=== PATIENT | female | born 1995 | race Caucasian/White ===

== ENCOUNTER 2018-07-14 19:56 | Inpatient (IN) | payer OTHER ==
[~2018-07-14] VITALS: Ht 165.1 cm; Wt 73.9 kg
--- NOTE | 2018-07-14 20:45 | NUR ---
Pre-admission assessment Patient is a 22-year old, female, seen at intake, AAOx4, no SOB but noted to be flushed and with gross tremors. Patient verbalized having anxiety. Discussed with patient admission policies of the unit. Patient is coherent and able to respond to questions appropriately. Patient is from [place], [place]. Pt is ambulatory with steady gait. Pt reports drinking Alcohol and uses Adderall as prescribed. Vital signs taken and as follows: CZ=093/99, P=113, O2 sat on RA=98%, RR=20, T=98.4. Per patient, she was diagnosed by her PCP of pre-Hypertension within the past 3 months. Pt verbalized instructions and teachings regarding disposal of narcotic and other controlled home meds, unit protocols such as taking of vital signs Q4H and handling and disposal of contraband.
[2018-07-14] MEDS ORDERED: MAG HYDROX/AL HYDROX/SIMETH 30 ML LIQUID UDC PO PRN (21:30)
[2018-07-14] MEDS ORDERED: ACETAMINOPHEN 325 MG TABLET PO PRN (21:30)
[2018-07-14] MEDS ORDERED: LOPERAMIDE HCL 2 MG CAPSULE PO PRN ×2 (21:30)
[2018-07-14] MEDS ORDERED: ONDANSETRON 4 MG/2 ML VIAL IM PRN (21:30)
[2018-07-14] MEDS ORDERED: SRC ALCOHOL WITHDRAWAL ADMITTING PROTOCOL XX PRN (21:30)
[2018-07-14] MEDS ORDERED: MIRALAX 17 GM POWD.PACK PO PRN (21:30)
[2018-07-14] MEDS ORDERED: MAGNESIUM HYDROXIDE 30 ML LIQUID UDC PO PRN (21:30)
[2018-07-14] MEDS ORDERED: ONDANSETRON ODT 4 MG TAB.RAPDIS SL PRN (21:30)
[2018-07-14] MEDS ORDERED: LORAZEPAM 2 MG/1 ML VIAL IM PRN (21:30)
[2018-07-14] MEDS ORDERED: LORAZEPAM 1 MG TABLET PO PRN (21:30)
[2018-07-14] MEDS: THIAMINE HCL 200 MG/2 ML VIAL IM ONE ×2 (22:00→23:14)
[2018-07-14] MEDS ORDERED: LORAZEPAM 1 MG TABLET PO ONE (22:00)
[2018-07-14 22:10] LABS: BASOPHILS # (AUTO) 0.1 K/uL (0.0-8.0); BASOPHILS % (AUTO) 0.6 % (0.0-2.0); EOSINOPHILS # (AUTO) 0.1 K/uL (0.0-0.7); EOSINOPHILS % (AUTO) 0.7 % (0.0-7.0); HEMATOCRIT 42.6 % (31.2-41.9); HEMOGLOBIN 14.7 g/dL (10.9-14.3); LYMPHOCYTES # (AUTO) 1.6 K/uL (20.0-40.0); LYMPHOCYTES % (AUTO) 15.9 % (20.5-51.5); MEAN CORPUSCULAR HGB CONC 35 g/dL (32.3-35.6); MEAN CORPUSCULAR VOLUME 95.4 fL (75.5-95.3); MONOCYTES # (AUTO) 0.7 K/uL (2.0-10.0); MONOCYTES % (AUTO) 6.7 % (0.0-11.0); NEUTROPHILS # (AUTO) 7.7 K/uL (1.8-8.9); NEUTROPHILS % (AUTO) 76.1 % (38.5-71.5); PLATELET COUNT (AUTO) 263 K/uL (179-408); RED BLOOD CELL COUNT(AUTO) 4.47 MIL/uL (3.63-4.92); WHITE BLOOD COUNT (AUTO) 10.2 K/uL (3.8-11.8)
--- NOTE | 2018-07-14 22:30 | NUR ---
Admission note VS BP-155/105 T-98.5 P-100 R-18 . Patient arrived in the unit at 2111. Patient is a 22 year old female who presents to [facility] for medically supervised withdrawal from ETOH. Patient is seeking for treatment because "If I don't stop I will ". Patient is 5'5 and 166 lbs. Skin intact. Speech is clear and gait is steady. Patient present with flat affect and depressed mood. Patient is not intoxicated and moderately withdrawing. She is anxious, restless, has bilateral hand tremors and flushing. CIWA is 17 upon assessment . Patient's typical symptoms are nausea, fatigue, tremors and headache. Past medical history : Patient's PCP is Dr. Neli Morales. Patient reports PMH of pre-hypertension, anxiety and depression, ulcerative colitis, insomnia, ADHD and alcoholic hepatitis. Patient states she doesn't take any medication for anxiety and depression. She brought Gabapentin from home. Patient reported taking Protonix 20 mg daily for ulcerative colitis. She denies seizure history. NO SI/HI. She experienced blackouts . I happened to me twice, she states. Patient had 5150 hospitalization on November 2017. Substance History: 1.Alcohol (Beer)-Patient started drinking 3 years ago. She drinks 12-15 12oz of beer daily for 2 years. Last drink was yesterday at 10 PM . She had 12 12oz of beer. 2.Adderall-Patient started using 5 years ago. This was prescribed for her ADHD. She takes 20 mg daily for 5 years. Last use was today. She used 5 mg. Patient reported using Ambien for her Insomnia. Last use was Nov, 2017. Per patient she had accidental overdose on Ambien and was admitted on [facility]. Patient denies it as suicide attempt that it was accidental overdose. Treatment history: Patient was in [facility] ([place]) on November 2017 -She stayed there for 5 days. She was given Librium during her stay . Patient stated that she doesn't really know why she's started drinking but since her mother and ex-boyfriend are alcoholic that she believes being around them influence her . This is also the reason for her relapse. She also believes that having depression is also one of the reason why she's drinking. When she get depressed she drinks. The consequences of her drinking was her health. She was diagnosed with alcoholic hepatitis on November 2017 . She was told by her doctor to stop drinking. She stated that she will go to [facility] after this and will start attending AA meetings. Patient oriented to surroundings and how to use call light. Explained unit and smoking policies. Safety measures in place. Will continue to monitor.
[2018-07-14 22:40] LABS: ALKALINE PHOSPHATASE 84 U/L (50-136); AMYLASE 37 U/L (25-115); ASPARTATE AMINOTRANSFERASE 119 U/L (15-37); BILIRUBIN,TOTAL 0.5 mg/dL (0.2-1.0); CARBON DIOXIDE 23 mmol/L (21-32); CHLORIDE 101 mmol/L (98-107); CREATININE 0.8 mg/dL (0.6-1.3); ETHANOL < 3 MG/DL (0-0); GLUCOSE 116 mg/dL (74-106); LIPASE 207 U/L (73-393); POTASSIUM 3.7 mmol/L (3.5-5.1); THYROID STIMULATING HORMONE 1.398 mIU/mL (0.358-3.740); TOTAL PROTEIN, SERUM 8.4 g/dL (6.4-8.2); UREA NITROGEN, BLOOD 7 mg/dL (7-18)
[2018-07-14 22:53] LABS: *URINE HCG, QUAL NEGATIVE (NEGATIVE)
--- NOTE | 2018-07-14 23:05 | NUR ---
PRN Valium administration Patient is anxious, restless, has bilateral hand tremors and flushed face. CIWA is 17 upon assessment .
[2018-07-14] MEDS: CLONIDINE HCL 0.1 MG TABLET PO PRN (23:06)
[2018-07-14 23:20] LABS: ALANINE AMINOTRANSFERASE 154 U/L (14-59)
[2018-07-15] VITALS: BP 155/101
--- NOTE | 2018-07-15 | NUR ---
Clonidine and Valium re-assessment / CIWA assessment Patient states Valium helpful and effective. Patient is less anxious. CIWA 10. Clonidine helpful BP rechecked 155/101
[2018-07-15 00:19] LABS: *AMPHETAMINE, URINE NEGATIVE (NEGATIVE); *BARBITURATE, URINE NEGATIVE (NEGATIVE); *CANNABINOID, URINE NEGATIVE (NEGATIVE); *COCCAINE, URINE NEGATIVE (NEGATIVE); *OPIATE, URINE NEGATIVE (NEGATIVE); *PHENCYCLIDINE SCREEN,URINE NEGATIVE (NEGATIVE)
[2018-07-15] MEDS: diphenhydrAMINE 50 MG CAPSULE PO PRN (00:22)
--- NOTE | 2018-07-15 00:22 | NUR ---
PRN Benadryl administration Patient states she's unable to go back to sleep.
--- NOTE | 2018-07-15 01:22 | NUR ---
PRN Benadryl re-assessment Patient lying in bed with eyes closed. Respiration even and unlabored. Will continue to monitor
[2018-07-15] MEDS ORDERED: GABA800T11 PO (01:47)
[2018-07-15] MEDS ORDERED: AMPH20CA3 PO (01:47)
[2018-07-15] MEDS ORDERED: PANT20TA2 PO (01:47)
[2018-07-15 04:00] VITALS: BP 100/59
--- NOTE | 2018-07-15 04:00 | NUR ---
CIWA assessment Patient lying in bed with eye closed. Respiration even and unlabored. Will continue to monitor
--- NOTE | 2018-07-15 07:30 | NUR ---
Start of shift Pt is here for medically supervised withdrawal of ETOH and reports taking Adderall, Pt PRN medication for withdrawal symptoms. At 2400 Last CIWA 10. Pt slept 6 hours. Patient alert and oriented x 4. Patient present with anxiety, flat affect and depressed mood. Patient reports fatigue, anxiety, restlessness and headache. Encouraged Pt to participate in group therapy sessions today to identify positive coping skills to maintain sobriety. All safety measures in place, bed locked/low position. Pt Full Code and NKA. Will continue to monitor for withdrawal symptoms.
--- NOTE | 2018-07-15 07:40 | NUR ---
End of shift note Patient slept 6 hours. Fluid intake 1,000 ml. Voided x 1. No BM. Patient newly admitted for ETOH withdrawal. Patient was given PRN Valium, Benadryl and Clonidine. Last blood pressure is 100/59 HR-79. Last CIWA 10. Safety measures in place . Will continue to monitor.
[2018-07-15 08:06] VITALS: BP 133/76
--- NOTE | 2018-07-15 08:28 | NUR ---
CIWA 10- Patient present with anxiety, flat affect and depressed mood. Patient reports fatigue, anxiety, restlessness and headache.
[2018-07-15] MEDS: MULTIVITAMINS,THERAPEUTIC TABLET PO SCH (08:45)
[2018-07-15] MEDS: LORAZEPAM 1 MG TABLET PO PRN ×2 (08:45→15:16)
[2018-07-15] MEDS: FOLIC ACID 1 MG TABLET PO SCH (08:45)
[2018-07-15] MEDS: THIAMINE HCL 100 MG TABLET PO SCH (08:46)
[2018-07-15] MEDS: IBUPROFEN 600 MG TABLET PO PRN (08:46)
--- NOTE | 2018-07-15 08:48 | NUR ---
PRN Ativan 1 mg PO for CIWA 13 PRN Ibuprofen 600 mg PO for headache #5/10 and body aches.
[2018-07-15] MEDS ORDERED: TUBERCULIN,PURIF.PROT.DERIV. 5 TU/0.1 ML TEST ID ONE (09:00)
--- NOTE | 2018-07-15 09:45 | NUR ---
Reassess Ibuprofen- Pt reports headache #07/26.
[2018-07-15 10:06] LABS: HEPATITIS B SURFACE AG Negative (Negative)
[2018-07-15 12:00] VITALS: BP 146/99
--- NOTE | 2018-07-15 12:10 | NUR ---
ISAAK 13- Patient present with anxiety, fatigue, headache, anhedonia, stomach cramps, flat affect and depressed mood.
--- NOTE | 2018-07-15 12:48 | NUR ---
Therapist prompted client to attend group therapy sessions.
[2018-07-15] MEDS ORDERED: 3 DAY TAPER OF LORAZEPAM -SERENITY PROTOCOL PO PRN (13:00)
--- NOTE | 2018-07-15 15:17 | NUR ---
PRN Ativan 1 mg PO for CIWA 13
--- NOTE | 2018-07-15 16:16 | NUR ---
[facility] 12- Patient present with anxiety, fatigue, headache, sweats/chills, restlessness, anhedonia, stomach cramps, flat affect and depressed mood.
[2018-07-15 16:34] VITALS: BP 140/93
[2018-07-15] MEDS: LORAZEPAM 1 MG TABLET PO SCH ×2 (17:30→20:25)
--- NOTE | 2018-07-15 18:39 | NUR ---
End of shift Pt is here for medically supervised withdrawal of ETOH and reports taking Adderall. Pt started on 3 day Ativan taper. At 1600 last CIWA 12. PRN given today; Ativan, Ibuprofen. Patient reports fatigue, headache, stomach cramps, restlessness , difficulty concentrating, anxiety, anhedonia, flat affect and depressed mood. Encouraged Pt to participate in group therapy sessions today to identify positive coping skills to maintain sobriety. PO fluids 2346 ml, voids x 3, no BM. All safety measures in place, bed locked/low position. Pt Full Code and NKA. Will continue to monitor for withdrawal symptoms.
--- NOTE | 2018-07-15 19:30 | NUR ---
Start of Shift Pt is a 22 y/o female admitted on 07/14/18 for ETOH withdrawal. Pt is on 3 day Ativan taper, tolerating well. Last CIWA 12, PRN Ativan 1mg and Ibuprofen were administered during the day shift. Pt presents with anxiety, agitation, stomach cramps, restlessness, flushed skin, and fatigue. Medications are due. Safety measures in place. Call light within reach. Will continue to monitor.
[2018-07-15 20:00] VITALS: BP 134/94
--- NOTE | 2018-07-15 20:00 | NUR ---
CIWA 10 Pt presents with anxiety, agitation, stomach cramps, restlessness, flushed skin, and fatigue. Medications are due. Safety measures in place. Call light within reach. Will continue to monitor.
[2018-07-15] MEDS: GABAPENTIN 400 MG CAPSULE PO SCH (20:25)
[2018-07-15] MEDS ORDERED: Medication Not On Formulary EA (Gabapentin 800 MG) PO SCH (21:00)
[2018-07-16] VITALS: BP 120/74
--- NOTE | 2018-07-16 | NUR ---
CIWA DEFERRED Patient is noted in bed with eyes closed. Breathing even and non labored. CIWA not able to be completed per order. Safety measures in place. Call light within reach. Will continue to monitor.
--- NOTE | 2018-07-16 04:00 | NUR ---
CIWA DEFERRED AND VITALS REFUSED Patient is noted in bed with eyes closed. Breathing even and non labored. CIWA and vital signs not able to be completed per order. Safety measures in place. Call light within reach. Will continue to monitor.
--- NOTE | 2018-07-16 07:00 | NUR ---
End of Shift Pt is a 22 y/o female admitted on 07/14/18 for ETOH withdrawal. Pt will continue a 3 day Ativan taper. Pt presented with anxiety, agitation, stomach cramps, restlessness, flushed skin, and fatigue. No PRN medications were administered during neckties painter. Last CIWA 10. Pt slept 10 hours. Intake 700 mls, void x 2, stool x 0. Safety measures in place. Call light within reach. Pts needs have been met. Endorsed to day shift nurse.
[2018-07-16] MEDS: PANTOPRAZOLE SODIUM 40 MG TABLET.DR PO SCH (07:05)
[2018-07-16 08:00] VITALS: BP 134/94
--- NOTE | 2018-07-16 08:05 | NUR ---
START OF SHIFT NOTE Received report from night nurse, 22 year old female admitted for ETOH withdrawal. Patient cont with her 3 days Ativan taper tolerating well. Per endorsement patient did not receive any PRN'S, last CIWA-10, slept for 10 hours. Received patient alert awake oriented x4 presented with anxiety, agitation, restless, sweats. Breathing normal no SOB noted. Skin intact warm and dry to to touch. All safety measures in place. Will cont with plan of care.
[2018-07-16] MEDS: MULTIVITAMINS,THERAPEUTIC TABLET PO SCH (08:42)
[2018-07-16] MEDS: THIAMINE HCL 100 MG TABLET PO SCH (08:42)
[2018-07-16] MEDS: FOLIC ACID 1 MG TABLET PO SCH (08:42)
[2018-07-16] MEDS: LORAZEPAM 1 MG TABLET PO SCH ×2 (08:42→20:47)
--- NOTE | 2018-07-16 08:42 | NUR ---
CIWA ASSESSMENT Patient presented with anxiety, fatigue, sad facial expression, sweats, bilateral hand tremors. Patient received her schedule medications. Will cont to monitor.
[2018-07-16 12:00] VITALS: BP 144/99
--- NOTE | 2018-07-16 12:00 | NUR ---
CIWA ASSESSMENT Patient continues to exhibited s/s of withdrawal anxiety, fatigue, sad facial expression, sweats, bilateral hand tremors. Will cont to monitor. Addendum: 07/16/18 at 1607 by NATALIA ARCEO LVN CIWA-11. Addendum: 07/16/18 at 1609 by NATALIA ARCEO LVN CORRECTION CIWA score-10.
--- NOTE | 2018-07-16 12:56 | NUR ---
Therapist prompted client to attend all daily group therapy sessions.
[2018-07-16 16:00] VITALS: BP 147/97
[2018-07-16] MEDS: HYDROXYZINE PAMOATE 25 MG CAPSULE PO PRN (17:58)
--- NOTE | 2018-07-16 17:58 | NUR ---
PRN VISTARIL Patient c/o anxiety, agitation, PRN Vistaril 50mg PO given as ordered. Will cont to monitor and reassess for effectiveness.
--- NOTE | 2018-07-16 18:58 | NUR ---
VISTARIL REASSESSMENT Patient reported Vistaril was effective anxiety and agitation subsided.
--- NOTE | 2018-07-16 19:02 | NUR ---
END OF SHIFT NOTE Patient is alert awake oriented x4, admitted for ETOH withdrawal and continues with Ativan taper tolerating well. Patient presented with anxiety, agitation, restless, bilateral hand tremors, light headed. Patient was given her scheduled medications and PRN Vistaril for anxiety noted to be effective. Patient attended groups activities. Skin intact warm and dry to touch. Patient encouraged to use diversional activities to alleviate anxiety. Last CIWA- 8. All safety measures in place. Endorse patient to night nurse in stable condition.
[2018-07-16] MEDS: CLONIDINE HCL 0.1 MG TABLET PO PRN (19:15)
--- NOTE | 2018-07-16 19:15 | NUR ---
Start of Shift/PRN Clonidine Received 22 year old female patient admitted to [facility] 07/14/18 for medically supervised withdrawal from ETOH. Pt currently on day 2 of a 3 day Ativan taper, which she is tolerating well. Pt received PRN Vistaril on day shift. Last CIWA 8 @1600. Per pt she has increased anxiety. She is agitated, visible tremors, restless, and shaky voice. PRN Clonidine given per order. Will monitor effect. Bed low, side rails up x2, and call zaidi in reach. Will continue to monitor.
[2018-07-16 20:00] VITALS: BP 141/96
--- NOTE | 2018-07-16 20:00 | NUR ---
CIWA 13 Pt has increased anxiety. She is agitated, visible tremors, restless, and shaky voice.
--- NOTE | 2018-07-16 20:15 | NUR ---
Reassess PRN Clonidine Medication effective. Pt expresses decreased anxiety and exhibits calmer demeanor.
[2018-07-16] MEDS: GABAPENTIN 400 MG CAPSULE PO SCH (20:47)
--- NOTE | 2018-07-17 | NUR ---
CI deferred/Vitals refused Pt resting with eyes closed. Respirations are even and unlabored. COWS deferred and pt refused vitals. Continue to monitor. Addendum: 07/17/18 at 0045 by SHANDA FLORES RN Disregard, duplicate in error
--- NOTE | 2018-07-17 | NUR ---
CIWA deferred/Vitals refused Pt resting with eyes closed. Respirations are even and unlabored. CIWA deferred and pt refused vitals. Continue to monitor.
[2018-07-17] MEDS: HYDROXYZINE PAMOATE 25 MG CAPSULE PO PRN (02:53)
[2018-07-17] MEDS: CLONIDINE HCL 0.1 MG TABLET PO PRN ×2 (02:54→13:25)
--- NOTE | 2018-07-17 02:54 | NUR ---
CIWA 10/ PRN Clonidine/Vistaril Pt awoke anxious, agitated, restless, and tremulous. CIWA 10. PRN Clonidine and Vistaril given per order. Will monitor effect.
--- NOTE | 2018-07-17 03:54 | NUR ---
Reassess PRN Clonidine/Vistaril Medication effective. Pt resting with eyes closed. Respirations even and unlabored. Continue to monitor.
[2018-07-17 04:00] VITALS: BP 134/86
[2018-07-17] MEDS: PANTOPRAZOLE SODIUM 40 MG TABLET.DR PO SCH (06:41)
--- NOTE | 2018-07-17 06:46 | NUR ---
End of Shift Endorsing 22 year old female patient admitted to [facility] 07/14/18 for medically supervised withdrawal from ETOH. Pt currently on day 3 of a 3 day Ativan taper, which she is tolerating well. Pt received PRN Vistaril and Clonidine x2 on warehouse worker 2nd shift. Last CIWA 10 @0254. Pt resting with eyes closed. Respirations are even and unlabored. Bed low, side rails up x 2, and call zaidi in reach. PO intake 1000 ml, voided x 1, BM x 0, and slept 9 hours.
[2018-07-17 08:00] VITALS: BP 105/69
--- NOTE | 2018-07-17 08:16 | NUR ---
START OF SHIFT: Received Pt A/O X 4. She presents with anxious mood and congruent affect. She reports anxiety and restlessness. She states she slept well last night and her appetite is decent CIWA 7.Ativan taper in progress to manage s/s of w/d. She states she is interacting with peers and attending groups. Will continue to monitor and manage s/s of w/d.
[2018-07-17] MEDS ORDERED: LORAZEPAM 1 MG TABLET PO SCH (09:00)
[2018-07-17] MEDS: FOLIC ACID 1 MG TABLET PO SCH (09:20)
[2018-07-17] MEDS: THIAMINE HCL 100 MG TABLET PO SCH (09:21)
[2018-07-17] MEDS: MULTIVITAMINS,THERAPEUTIC TABLET PO SCH (09:21)
--- NOTE | 2018-07-17 10:35 | NUR ---
Therapist prompted client to attend group therapy.
[2018-07-17 12:00] VITALS: BP 143/96
[2018-07-17] MEDS ORDERED: GABA800T11 PO (13:22)
[2018-07-17] MEDS ORDERED: DIPH50CA37 PO (13:22)
[2018-07-17] MEDS ORDERED: HYDR-3895 PO (13:22)
[2018-07-17] MEDS ORDERED: PANT20TA2 PO (13:22)
[2018-07-17] MEDS ORDERED: CLON0.1T14 PO (13:22)
--- NOTE | 2018-07-17 13:30 | NUR ---
PRN Clonidine given for reported anxiety and intermittent sweats. Will monitor effectiveness of PRN.
--- NOTE | 2018-07-17 14:30 | NUR ---
Pt reports Clonidine PRN was effective in reducing anxiety and sweats.
[2018-07-17 16:00] VITALS: BP 132/92
[2018-07-17] MEDS: IBUPROFEN 600 MG TABLET PO PRN (17:11)
--- NOTE | 2018-07-17 17:15 | NUR ---
PRN Ibuprofen 600 mg PO given for reported wisdom tooth pain 6/10 on scale. Will monitor effectiveness of PRN medication.
--- NOTE | 2018-07-17 19:23 | NUR ---
END OF SHIFT: Pt completed modified Ativan taper to manage s/s of w/d which include anxiety, restlessness and sweats. Last CIWA 8. She attended groups and interacted with peers.She c/o tooth pain late in shift and PRN Ibuprofen given and effective. She is scheduled for discharge tomorrow morning to RTC and verbalized motivation toward recovery. Will pass shift report to oncoming manufacturing supervisor 2nd shift nurse.
--- NOTE | 2018-07-17 19:30 | NUR ---
Start of shift note Received report from day shift nurse. Patient is a 22 year old female admitted for ETOH withdrawal. Patient completed 3 day Ativan taper. Patient is medically cleared to bed discharge tomorrow. Patient received PRN Ibuprofen and Clonidine. Last CIWA 8. Patient alert and oriented x 4. Patient c/o anxiety, restlessness, intermittent perspiration , insomnia and toothache. Safety measures in place. Will continue to monitor.
[2018-07-17 20:00] VITALS: BP 117/70
--- NOTE | 2018-07-17 20:00 | NUR ---
CIWA assessment Patient c/o anxiety, restlessness, intermittent perspiration , insomnia and toothache. CIWA 7
[2018-07-17] MEDS: GABAPENTIN 400 MG CAPSULE PO SCH (20:53)
--- NOTE | 2018-07-17 20:55 | NUR ---
PRN Motrin administration Patient c/o toothache. Will monitor for effectiveness
[2018-07-17] MEDS: diphenhydrAMINE 50 MG CAPSULE PO PRN (21:04)
--- NOTE | 2018-07-17 21:04 | NUR ---
TAYO Cooper re-assessment Patient requests for sleep aid. Will monitor for effectiveness
--- NOTE | 2018-07-17 21:55 | NUR ---
PRN Motrin re-assessment Patient states Motrin is helpful and effective.
[2018-07-18] VITALS: BP 124/70
--- NOTE | 2018-07-18 | NUR ---
PRN Benadryl/CIWA deferred Patient lying in bed with eyes closed. Respiration even and unlabored. Will continue to monitor.
[2018-07-18 04:00] VITALS: BP 120/82
--- NOTE | 2018-07-18 04:00 | NUR ---
CIWA deferred Patient lying in bed with eyes closed. Respiration even and unlabored. Will continue to monitor.
[2018-07-18] MEDS: PANTOPRAZOLE SODIUM 40 MG TABLET.DR PO SCH (07:17)
--- NOTE | 2018-07-18 07:30 | NUR ---
End of shift note Patient completed 3 day Ativan taper. Patient is medically cleared to bed discharge today . Patient alert and oriented x 4. Patient c/o anxiety, restlessness, intermittent perspiration , insomnia and toothache. Patient was given PRN Benadryl and Motrin. Safety measures in place. Will continue to monitor. Patient slept 8 hours. . Fluid intake 500 ml. Voided x 1. No BM. Last CIWA 7.
[2018-07-18 08:01] VITALS: BP 107/68
--- NOTE | 2018-07-18 08:04 | NUR ---
START OF SHIFT: Received Pt A/O X 4. She presents with anxious mood and congruent affect. She reports anxiety about upcoming discharge this morning but states she is motivated toward recovery. CIWA 7.Ativan taper completed. Will continue with discharge process to RTC.
[2018-07-18] MEDS: MULTIVITAMINS,THERAPEUTIC TABLET PO SCH (09:04)
[2018-07-18] MEDS: IBUPROFEN 600 MG TABLET PO PRN (09:04)
[2018-07-18] MEDS: FOLIC ACID 1 MG TABLET PO SCH (09:04)
[2018-07-18] MEDS: THIAMINE HCL 100 MG TABLET PO SCH (09:04)
--- NOTE | 2018-07-18 09:55 | NUR ---
DISCHARGE: Pt is A/O X4. She denies S/I and H/I. She verbalizes enthusiasm toward recovery process.Belongings returned. Educated her on discharge instructions and medication. She expressed verbal understanding of education. [facility] she was transported by Esvin Granado at 0950 to [facility].
== END 2018-07-18 09:50 | disposition other institution (70) | DRG 895 ==
LOC: SRC 19:56
PROVIDERS: ADMIT Family Medicine Addiction Medicine; ATTEND Family Medicine Addiction Medicine
PROC: HZ2ZZZZ Detoxification Services for Substance Abuse Treatment (ICD-10-PCS; principal; 2018-07-14)
PROC: HZ41ZZZ Group Counseling for Substance Abuse Treatment, Behavioral (ICD-10-PCS; 2018-07-15)
PROC: HZ31ZZZ Individual Counseling for Substance Abuse Treatment, Behavioral (ICD-10-PCS; 2018-07-17)
DX: F10.230 Alcohol dependence with withdrawal, uncomplicated (principal); F13.20 Sedative, hypnotic or anxiolytic dependence, uncomplicated; K51.90 Ulcerative colitis, unspecified, without complications; K70.10 Alcoholic hepatitis without ascites; Y90.0 Blood alcohol level of less than 20 mg/100 ml; F17.210 Nicotine dependence, cigarettes, uncomplicated; F90.9 Attention-deficit hyperactivity disorder, unspecified type; Z91.89 Other specified personal risk factors, not elsewhere classified; F41.9 Anxiety disorder, unspecified; Z81.1 Family history of alcohol abuse and dependence; Z83.3 Family history of diabetes mellitus; Z82.49 Family history of ischemic heart disease and other diseases of the circulatory system; F32.9 Major depressive disorder, single episode, unspecified
CPT/HCPCS: 36415; 70030-TC; 80307; 83690; 83735; 84443; 84703; 85025; 86592; 86705; 86803; 87340; 87806; A4663; G0480; J3411; Q0163